=== PATIENT | male | born 2005 | race Hispanic/Latino ===

== ENCOUNTER 2024-05-01 12:59 | Emergency (ER) | payer BC ==
[~2024-05-01] VITALS: Ht 180.3 cm; Wt 81.6 kg
[2024-05-01 13:15] VITALS: PULSE 62; RESP 14; TEMP 98.8
[2024-05-01 14:16] LABS: INFLUENZA A AG NEGATIVE (NEGATIVE); INFLUENZA B AG NEGATIVE (NEGATIVE)
[2024-05-01 14:17] LABS: CORONAVIRUS COVID-19 AG NEGATIVE (NEGATIVE)
[2024-05-01] MEDS ORDERED: VENTOLIN HFA18 GM INH (14:29)
[2024-05-01 14:44] VITALS: BP 129/84; PULSE 71; RESP 18; TEMP 98.3; O2SAT 100
== END 2024-05-01 15:08 | disposition home or self-care (01) ==
LOC: ER 13:06
DX: R05.9 Cough, unspecified (principal); J06.9 Acute upper respiratory infection, unspecified; Z11.52 Encounter for screening for COVID-19
CPT/HCPCS: 99283

== ENCOUNTER 2024-09-21 18:10 | Emergency (ER) | payer BC ==
[~2024-09-21] VITALS: Ht 180.3 cm; Wt 81.6 kg
[~2024-09-21 18:10] MED LIST: VENTOLIN HFA18 GM INH
[2024-09-21] MEDS: ONDANSETRON HCL 4 MG ORAL DISINTEGRATING TAB PO ONE (19:09)
[2024-09-21 20:55] VITALS: PULSE 88; RESP 16; TEMP 98; O2SAT 100
[2024-09-21] MEDS ORDERED: ONDANSETRON ODT4 MG PO (20:55)
== END 2024-09-21 21:04 | disposition home or self-care (01) ==
LOC: ER 19:03
DX: R05.9 Cough, unspecified (principal); B34.9 Viral infection, unspecified; J45.909 Unspecified asthma, uncomplicated; F84.0 Autistic disorder
CPT/HCPCS: 93005; 99283; Q0162

== ENCOUNTER 2024-09-26 11:47 | Inpatient (IN) | payer BC, OTHER ==
[~2024-09-26] VITALS: Ht 180.3 cm; Wt 81.6 kg
[~2024-09-26 11:47] MED LIST changes: +ONDANSETRON ODT4 MG PO
[2024-09-26 13:07] LABS: BASOPHILS # (AUTO) 0.1 (0.0-0.1); BASOPHILS % 0.8 % (0.0-1.0); HEMATOCRIT 42.5 % (38.2-49.6); HEMOGLOBIN 15.3 g/dL (14.0-18.0); LYMPHOCYTES # (AUTO) 3.4 (1.0-3.2); LYMPHOCYTES % 28.7 % (18.0-39.1); MEAN CORPUSCULAR HEMOGLOBIN 28.4 pg (28-32); MONOCYTES # (AUTO) 0.5 (0.2-0.8); MONOCYTES % 4.1 % (4.4-11.3); NEUTROPHILS # (AUTO) 7.8 (2.1-6.9); NEUTROPHILS % 65.6 % (38.7-80.0); PLATELET COUNT 124 x10e3/uL (140-360); RED BLOOD COUNT 5.38 x10e6/uL (4.3-5.7); RED CELL DISTRIBUTION WIDTH 12.5 % (11.7-14.4); WHITE BLOOD COUNT 11.87 x10e3/uL (4.8-10.8)
[2024-09-26 13:23] LABS: CORONAVIRUS COVID-19 AG NEGATIVE (NEGATIVE); INFLUENZA A AG NEGATIVE (NEGATIVE); INFLUENZA B AG NEGATIVE (NEGATIVE)
[2024-09-26 13:25] LABS: INR 1.04; PROTHROMBIN TIME 14.5 seconds (11.9-14.5)
[2024-09-26 13:26] LABS: ALBUMIN 3.7 g/dL (3.5-5.0); ALBUMIN/GLOBULIN RATIO 0.9 (0.8-2.0); ANION GAP 19.5 mmol/L (8-16); BILIRUBIN,TOTAL 2.8 mg/dL (0.2-1.2); CALCIUM 9.3 mg/dL (8.4-10.2); CREATININE, SERUM 1.12 mg/dL (0.72-1.25); MAGNESIUM 1.9 MG/DL (1.3-2.1); POTASSIUM 3.5 mmol/L (3.5-5.1); TOTAL PROTEIN 7.7 g/dL (6.5-8.1)
[2024-09-26 13:32] LABS: TROPONIN I 0.02 ng/mL (0-0.300)
[2024-09-26] MEDS: ACETAMINOPHEN 1000 MG/100 ML IV STA (13:38)
[2024-09-26] MEDS: SODIUM CHLORIDE 0.9% 1000ML 1,000 ML IV STA ×2 (13:39→16:15)
[2024-09-26] MEDS: ONDANSETRON HCL INJ 2MG/ML 2ML 2 MG/ML VIAL IV STA (13:39)
[2024-09-26 14:40] LABS: BAND NEUTROPHILS % (MANUAL) 2 %; BLAST CELLS % MANUAL 3; LYMPHOCYTES % (MANUAL) 22 % (19-48); METAMYELOCYTES % (MANUAL) 1 % (0-0); MONOCYTES % (MANUAL) 4 % (3.4-9.0); NEUTROPHILS % (MANUAL) 62 % (40-74); REACTIVE LYMPHOCYTES 6; SMUDGE CELLS FEW
[2024-09-26 15:35] LABS: CLARITY,URINE CLOUDY (CLEAR); COLOR,URINE AMBER (YELLOW); GLUCOSE, URINE 1+ (NEGATIVE); KETONES,URINE NEGATIVE (NEGATIVE); LEUKOCYTE ESTERASE ,URINE NEGATIVE (NEGATIVE); NITRITE,URINE NEGATIVE (NEGATIVE); OPIATES SCREEN,URINE POSITIVE (NEGATIVE); PH,URINE 6 (5 - 7); PROTEIN,URINE DIPSTICK 2+ (NEGATIVE)
[2024-09-26 15:36] LABS: AMPHETAMINES SCREEN,URINE NEGATIVE (NEGATIVE); BENZODIAZEPINES SCREEN,URINE NEGATIVE (NEGATIVE); BILIRUBIN,URINE 3+ (NEGATIVE); CANNABINOIDS SCREEN,URINE POSITIVE (NEGATIVE); COCAINE SCREEN,URINE NEGATIVE (NEGATIVE); METHADONE SCREEN, URINE NEGATIVE (NEGATIVE); PHENCYCLIDINE SCREEN,URINE NEGATIVE (NEGATIVE); URINE UROBILINOGEN >=8 mg/dL (0.2 - 1)
[2024-09-26 16:05] LABS: BACTERIA,URINE MANY /HPF; RBC,URINE 0-5 /HPF (0-5)
[2024-09-26 16:06] LABS: EPITHELIAL CELLS,URINE FEW /LPF
[2024-09-26 16:11] LABS: OTHER CRYSTALS,URINE PRESENT
[2024-09-26 17:20] VITALS: TEMP 98.7
[2024-09-26 18:46] VITALS: PULSE 100; RESP 16
[2024-09-26] MEDS: SODIUM CHLORIDE 0.9% 1000ML 1,000 ML IV SCH (18:46)
[2024-09-26 18:58] LABS: HIV 1&2 AB SCREEN NON-REACTIVE (NONREACTIVE)
[2024-09-26 18:59] LABS: HIV- 1 P24 AG SCREEN NON-REACTIVE (NONREACTIVE)
[2024-09-26 20:50] VITALS: BP 133/72; PULSE 89; RESP 18; TEMP 97; O2SAT 98
[2024-09-26 21:15] VITALS: BP 127/66; PULSE 86; RESP 18; TEMP 97; O2SAT 100
[2024-09-26 21:17] VITALS: BP 127/66; PULSE 86; RESP 18; TEMP 97; O2SAT 100
[2024-09-26] MEDS: Morphine 2mg Syringe 2 MG/ML SYR IV PRN (23:22)
[2024-09-26 23:37] VITALS: BP 120/72; PULSE 95; RESP 18; TEMP 97.7; O2SAT 100
[2024-09-27] VITALS (8 sets, daily range): BP systolic 120–131; BP diastolic 60–71; PULSE 97–112; RESP 15–18; TEMP 97.7–99.1; O2SAT 98–100
[2024-09-27 06:13] LABS: BASOPHILS # (AUTO) 0.1 (0.0-0.1); BASOPHILS % 0.7 % (0.0-1.0); HEMATOCRIT 35.8 % (38.2-49.6); HEMOGLOBIN 12.9 g/dL (14.0-18.0); LYMPHOCYTES # (AUTO) 2.4 (1.0-3.2); LYMPHOCYTES % 27.5 % (18.0-39.1); MEAN CORPUSCULAR HEMOGLOBIN 29.1 pg (28-32); MEAN CORPUSCULAR VOLUME 80.6 fL (81-99); MONOCYTES # (AUTO) 0.4 (0.2-0.8); MONOCYTES % 4.4 % (4.4-11.3); NEUTROPHILS # (AUTO) 5.7 (2.1-6.9); NEUTROPHILS % 66.4 % (38.7-80.0); PLATELET COUNT 117 x10e3/uL (140-360); RED BLOOD COUNT 4.44 x10e6/uL (4.3-5.7); RED CELL DISTRIBUTION WIDTH 12.5 % (11.7-14.4); WHITE BLOOD COUNT 8.58 x10e3/uL (4.8-10.8)
[2024-09-27 07:01] LABS: ALBUMIN 2.5 g/dL (3.5-5.0); ALBUMIN/GLOBULIN RATIO 0.9 (0.8-2.0); ANION GAP 15.5 mmol/L (8-16); BILIRUBIN,TOTAL 1.8 mg/dL (0.2-1.2); CALCIUM 7.8 mg/dL (8.4-10.2); CREATININE, SERUM 0.8 mg/dL (0.72-1.25); POTASSIUM 3.5 mmol/L (3.5-5.1); TOTAL PROTEIN 5.3 g/dL (6.5-8.1)
[2024-09-27 10:45] LABS: LYMPHOCYTES % (MANUAL) 6 % (19-48); MONOCYTES % (MANUAL) 3 % (3.4-9.0); NEUTROPHILS % (MANUAL) 85 % (40-74); PLATELET ESTIMATE SLIGHTLY DECREASED; REACTIVE LYMPHOCYTES 6
[2024-09-27 10:46] LABS: PLATELET MORPHOLOGY COMMENT NORMAL; RBC MORPHOLOGY COMMENT NORMAL
[2024-09-27] MEDS: ALPRAZOLAM 1 MG TAB PO ONE (10:48)
[2024-09-27] MEDS ORDERED: HYDRALAZINE HCL 20 MG/ML VIAL IV PRN (11:30)
[2024-09-27] MEDS ORDERED: NO HOME MEDS (12:02)
[2024-09-27] MEDS: POTASSIUM CHLORIDE 20MEQ/100ML 100 ML IV ONE (12:08)
[2024-09-27] MEDS: ONDANSETRON HCL INJ 2MG/ML 2ML 2 MG/ML VIAL IV PRN (23:14)
[2024-09-28] VITALS (8 sets, daily range): BP systolic 116–141; BP diastolic 55–68; PULSE 73–108; RESP 17–18; TEMP 97.3–99; O2SAT 95–99
[2024-09-28 06:22] LABS: BASOPHILS # (AUTO) 0.1 (0.0-0.1); BASOPHILS % 0.5 % (0.0-1.0); HEMATOCRIT 33.6 % (38.2-49.6); HEMOGLOBIN 11.9 g/dL (14.0-18.0); LYMPHOCYTES # (AUTO) 3.8 (1.0-3.2); LYMPHOCYTES % 40.5 % (18.0-39.1); MEAN CORPUSCULAR HGB CONC 35.4 g/dL (31-35); MEAN CORPUSCULAR VOLUME 81.8 fL (81-99); MONOCYTES # (AUTO) 0.8 (0.2-0.8); MONOCYTES % 8.5 % (4.4-11.3); NEUTROPHILS # (AUTO) 4.5 (2.1-6.9); NEUTROPHILS % 48.6 % (38.7-80.0); PLATELET COUNT 143 x10e3/uL (140-360); RED BLOOD COUNT 4.11 x10e6/uL (4.3-5.7); RED CELL DISTRIBUTION WIDTH 12.6 % (11.7-14.4)
[2024-09-28 06:35] LABS: ALBUMIN 2.5 g/dL (3.5-5.0); ALBUMIN/GLOBULIN RATIO 0.9 (0.8-2.0); ANION GAP 12.5 mmol/L (8-16); BILIRUBIN,TOTAL 1.5 mg/dL (0.2-1.2); CALCIUM 7.7 mg/dL (8.4-10.2); CREATININE, SERUM 0.8 mg/dL (0.72-1.25); PHOSPHORUS 2.6 MG/DL (2.3-4.7); POTASSIUM 3.5 mmol/L (3.5-5.1); TOTAL PROTEIN 5.4 g/dL (6.5-8.1)
[2024-09-28 06:55] LABS: FREE T4 (FREE THYROXINE) 1.03 ng/dL (0.8-1.8); THYROID STIMULATING HORMONE 1.667 uIU/mL (0.350-4.940)
[2024-09-28] MEDS ORDERED: LIDOCAINE HCL 2% LOCAL INJ 5 ML SDV VIAL INJ ONE (07:46)
[2024-09-28] MEDS ORDERED: ROCURONIUM BROMIDE 1 ML IV ONE (07:46)
[2024-09-28] MEDS ORDERED: MIDAZOLAM HCL 2 MG/2 ML VIAL ONE (07:46)
[2024-09-28] MEDS ORDERED: FENTANYL CITRATE/PF 100MCG/2 ML INJ ONE ×2 (07:46→08:11)
[2024-09-28] MEDS ORDERED: PROPOFOL IV EMULSION 10 MG/ML 20 ML VIAL ONE ×2 (07:47→08:00)
[2024-09-28] MEDS ORDERED: DEXAMETHASONE SOD PHOS INJ 4 MG/ML SDV ONE (08:02)
[2024-09-28] MEDS ORDERED: ACETAMINOPHEN 1000 MG/100 ML 100 ML IV ONE (08:13)
[2024-09-28] MEDS ORDERED: ONDANSETRON HCL INJ 2MG/ML 2ML 2 MG/ML VIAL ONE (08:36)
[2024-09-28] MEDS ORDERED: KETOROLAC TROMETHAMINE 30 MG/ML VIAL ONE (08:36)
[2024-09-28] MEDS ORDERED: HYDROMORPHONE 2MG/ML ONE (08:40)
[2024-09-28] MEDS ORDERED: Morphine 4mg INJECTION 4 MG/ML INJ IV PRN (09:00)
[2024-09-28 11:15] LABS: LYMPHOCYTES % (MANUAL) 34 % (19-48); MONOCYTES % (MANUAL) 8 % (3.4-9.0); NEUTROPHILS % (MANUAL) 55 % (40-74); PLATELET ESTIMATE SLIGHTLY DECREASED; PLATELET MORPHOLOGY COMMENT NORMAL; REACTIVE LYMPHOCYTES 3
[2024-09-28] MEDS: POTASSIUM CHLORIDE 10MEQ EA PO ONE (13:52)
[2024-09-28] MEDS ORDERED: ONDANSETRON ODT4 MG PO (20:00)
[2024-09-28] MEDS ORDERED: ULTRAM 50MG50 MG PO (20:00)
[2024-09-28] MEDS ORDERED: TYLENOL325 MG PO (20:00)
[2024-10-07 06:39] LABS: HEPATITIS A ANTIBODY IGM (P) Negative; HEPATITIS B CORE IGM (P) Negative; HEPATITIS B SURFACE AG (P) Negative
[2024-10-07 06:40] LABS: HEPATITIS C ANTIBODY Non Reactive
== END 2024-09-28 20:45 | disposition home or self-care (01) | DRG 418 ==
LOC: ER 12:51 → ERHOLD 18:24 → MED/SURG2 20:02 → MED/SURG3 09-27 19:25
PROVIDERS: ADMIT Internal Medicine; ATTEND Internal Medicine
PROC: 0FT44ZZ Resection of Gallbladder, Percutaneous Endoscopic Approach (ICD-10-PCS; principal; 2024-09-28 07:52)
DX: K80.10 Calculus of gallbladder with chronic cholecystitis without obstruction (principal); F84.0 Autistic disorder; R17 Unspecified jaundice; R16.2 Hepatomegaly with splenomegaly, not elsewhere classified; D69.59 Other secondary thrombocytopenia; E87.6 Hypokalemia; M54.50 Low back pain, unspecified; R79.89 Other specified abnormal findings of blood chemistry; J45.909 Unspecified asthma, uncomplicated; F40.240 Claustrophobia; R53.81 Other malaise; Z11.52 Encounter for screening for COVID-19
CPT/HCPCS: 36415; 71045; 74176; 74181; 76705; 80053; 80307; 80329; 81001; 82550; 83690; 83735; 84100; 84439; 84443; 84484; 85025; 85610; 87390; 88184; 88304; 94799; 99284; C1766; G0433; G0435; J0696; J1100; J1171; J1885; J2003; J2250; J2270; J2405; J2543; J3480; J7030